=== PATIENT | male | born 1985 | race American Indian/Alaskan Native ===

== ENCOUNTER 2018-05-05 04:59 | Emergency (ER) | payer BC, OTHER ==
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
[2018-05-05] MEDS ORDERED: NORCO 5/325 PO ONE (09:09)
[2018-05-05] MEDS ORDERED: BOOSTRIX IM ONE (09:11)
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
[2018-05-05] MEDS ORDERED: NACL 0.9% 500 ML IR ONE (10:52)
[2018-05-05 11:17] VITALS: BP 122/68
== END 2018-05-05 11:05 | disposition home or self-care (01) ==
LOC: ED 04:59
DX: S16.1XXA Strain of muscle, fascia and tendon at neck level, initial encounter (principal); S80.212A Abrasion, left knee, initial encounter; S80.211A Abrasion, right knee, initial encounter; S09.90XA Unspecified injury of head, initial encounter; I10 Essential (primary) hypertension; V49.49XA Driver injured in collision with other motor vehicles in traffic accident, initial encounter; Y93.89 Activity, other specified; Y92.89 Other specified places as the place of occurrence of the external cause; Y99.8 Other external cause status
CPT/HCPCS: 70460; 72125; 90471; 90715; 99283